=== PATIENT | female | born 2000 | race American Indian/Alaskan Native ===

== ENCOUNTER 2022-05-31 01:45 | Emergency (ER) | payer MEDICAID ==
--- NOTE | 2022-05-31 03:11 | Emergency Department Report ---
ED General Adult HPI - General Chief complaint: Medical Clearance Stated complaint: PANIC ATTACK Time Seen by Provider: 05/31/22 01:59 Source: patient, EMS Mode of arrival: Ambulatory Limitations: No Limitations - History of Present Illness Initial comments: Patient 21-year-old male who presents as mother and patient, is 1 of 3 patients for COVID exposure. Mother states 1-year-old family member passed with COVID on last night. Both she and children have positive contact with same. Mother states entire family with cough and chills for the past week no T-max noted at home no fever noted in triage today.. States decreased appetite and malaise, Pt denies respiratory distress patient does not have history of asthma or bronchitis. pt is not covid vaccinated. Patient is tolerating p.o. intake at this time without nausea vomiting. Patient appears nontoxic well-hydrated and well-nourished. Pt denies exacerbating or relieving factors. states she just wants self and children check out for COVID - Related Data Previous Rx's Medication Instructions Recorded Last Taken Type Acetaminophen 1,000 mg PO Q6H PRN #30 cap 05/31/22 Unknown Rx Albuterol Mdi (or & Nicu Only) 2 puff IH QID PRN #8.5 gram 05/31/22 Unknown Rx [ProAir HFA Inhaler] predniSONE [Deltasone] 20 mg PO QDAY 5 Days #5 tab 05/31/22 Unknown Rx Allergies Allergy/AdvReac Type Severity Reaction Status Date / Time No Known Allergies Allergy Unverified 05/31/22 01:53 ED Review of Systems ROS: Stated complaint: PANIC ATTACK Other details as noted in HPI Constitutional: fever. denies: chills Eyes: denies: eye pain, eye discharge, vision change ENT: congestion. denies: ear pain, throat pain Respiratory: cough. denies: shortness of breath, wheezing Cardiovascular: denies: chest pain, palpitations Endocrine: no symptoms reported Gastrointestinal: denies: abdominal pain, nausea, vomiting, diarrhea Genitourinary: denies: urgency, dysuria, discharge Musculoskeletal: denies: back pain, joint swelling, arthralgia Skin: denies: rash, lesions Neurological: denies: headache, weakness, paresthesias, vertigo Psychiatric: denies: anxiety, depression Hematological/Lymphatic: denies: easy bleeding, easy bruising ED Past Medical Hx - Medications Home Medications: Home Medications Medication Instructions Recorded Confirmed Last Taken Type Acetaminophen 1,000 mg PO Q6H PRN #30 cap 05/31/22 Unknown Rx Albuterol Mdi (or & Nicu Only) 2 puff IH QID PRN #8.5 gram 05/31/22 Unknown Rx [ProAir HFA Inhaler] predniSONE [Deltasone] 20 mg PO QDAY 5 Days #5 tab 05/31/22 Unknown Rx ED Physical Exam - General Limitations: No Limitations General appearance: alert, in no apparent distress - Head Head exam: Present: normocephalic, normal inspection - Eye Eye exam: Present: PERRL, EOMI. Absent: conjunctival injection, nystagmus Pupils: Present: normal accommodation - ENT ENT exam: Present: normal orophraynx, mucous membranes moist, TM's normal bilaterally, normal external ear exam - Neck Neck exam: Present: normal inspection, full ROM. Absent: tenderness (Clear postnasal drip), lymphadenopathy - Respiratory Respiratory exam: Present: normal lung sounds bilaterally. Absent: respiratory distress, wheezes, stridor, chest wall tenderness - Cardiovascular Cardiovascular Exam: Present: regular rate, normal rhythm, normal heart sounds. Absent: systolic murmur, diastolic murmur, rubs, gallop - GI/Abdominal GI/Abdominal exam: Present: soft, normal bowel sounds. Absent: distended, tenderness, guarding, rebound, rigid, bruit, hernia - Rectal Rectal exam: Present: deferred - Extremities Exam Extremities exam: Present: normal inspection, full ROM, normal capillary refill. Absent: tenderness, pedal edema - Back Exam Back exam: Present: normal inspection, full ROM. Absent: CVA tenderness (R), CVA tenderness (L) - Neurological Exam Neurological exam: Present: alert, oriented X3, CN II-XII intact, normal gait - Expanded Neurological Exam Expanded Patient oriented to: Present: person, place, time Speech: Present: fluid speech Motor strength exam: RUE: 5, LUE: 5, RLE: 5, LLE: 5 Best Eye Response ([place]): (4) open spontaneously Best Motor Response ([place]): (6) obeys commands Best Verbal Response ([place]): (5) oriented [place] Total: 15 - Psychiatric Psychiatric exam: Present: normal affect, normal mood - Skin Skin exam: Present: warm, dry, intact, normal color. Absent: rash ED Medical Decision Making - Radiology Data Radiology results: report reviewed, image reviewed HEST 1 VIEW 05/31/2022 2:19 AM INDICATION / CLINICAL INFORMATION: cough fever TO INCLUDE UPPER ABD.. COMPARISON: None available. FINDINGS: SUPPORT DEVICES: None. HEART / MEDIASTINUM: No significant abnormality. LUNGS / PLEURA: No significant pulmonary or pleural abnormality. No pneumothorax. ADDITIONAL FINDINGS: Upper abdomen is unremarkable. IMPRESSION: No acute abnormality. Signer Name: Phillip Rosenbaum MD Signed: 05/31/2022 3:25 AM Workstation Name: [id number] Transcribed By: ES Dictated By: Phillip Rosenbaum MD Electronically Authenticated By: Phillip Rosenbaum MD Signed Date/Time: 05/31/22324 DD/ 3 TD/TT: - Medical Decision Making Chest x-ray no infiltrates no opacities, symptoms are improved. Plan DC to home with prescriptions. Follow-up with your primary care doctor in 2 to 3 days. Return to emergency department should symptoms worsen.. Critical care attestation.: If time is entered above; I have spent that time in minutes in the direct care of this critically ill patient, excluding procedure time. ED Disposition Clinical Impression: Bronchitis, Exposure to COVID-19 virus Disposition: 01 HOME / SELF CARE / HOMELESS Is pt being admited?: No Does the pt Need Aspirin: No Condition: Stable Instructions: Chronic Bronchitis (ED), Upper Respiratory Infection, Adult, [id number], Acute Bronchitis, Adult Additional Instructions: Take medications as prescribed, hydrate as directed, follow-up with your primary care doctor in 2 to 3 days. Return to emergency department should symptoms worsen. Prescriptions: Acetaminophen 1,000 mg PO Q6H PRN #30 cap PRN Reason: pain fever predniSONE [Deltasone] 20 mg PO QDAY 5 Days #5 tab Albuterol Mdi (or & Nicu Only) [ProAir HFA Inhaler] 2 puff IH QID PRN #8.5 gram PRN Reason: Shortness Of Breath Referrals: FRANCISCO MACHADO MD [Staff Physician] - 3-5 Days Forms: Work/School Release Form(ED) Time of Disposition: 04:53
--- NOTE | 2022-05-31 03:30 | XRay Report ---
CHEST 2 VIEWS INDICATION: fever sob. COMPARISON: None. FINDINGS: Support devices: None. Heart: Within normal limits. Lungs/Pleura: No acute air space or interstitial disease. No significant pleural effusion. IMPRESSION: No acute findings. Signer Name: Phillip Rosenbaum MD Signed: 05/31/2022 3:26 AM Workstation Name: [id number]
[2022-05-31 04:51] VITALS: BP 116/70
== END 2022-05-31 10:45 | disposition home or self-care (01) ==
LOC: ED 01:45
DX: J40 Bronchitis, not specified as acute or chronic (principal); Z20.822 Contact with and (suspected) exposure to COVID-19
CPT/HCPCS: 71046; 99283